=== PATIENT | male | born 1940 | race Caucasian/White ===

== ENCOUNTER 2021-01-21 11:32 | Emergency (ER) | payer MEDICARE, OTHER ==
[2021-01-21 13:47] LABS: BASOPHIL 1.1 % (0-2); EOSINOPHIL 2.7 % (0-7); HGB 14.4 g/dl (13.2-18.0); LYMPHOCYTE 19.9 % (15-48); MCH 30.2 pg (25.0-31.0); MCHC 34.3 g/dL (32.0-36.0); MCV 88.1 fL (78.0-100.0); MONOCYTE 8.2 % (0-12); MPV 8.9 fL (6.0-9.5); NEUTROPHIL 67.6 % (41-80); NRBC 0; PLT 246 K/uL (150-400); RBC 4.77 M/uL (4.70-6.00); RDW 12.9 % (11.5-14.0); WBC 6.6 K/uL (4.0-10.5)
[2021-01-21 14:41] LABS: ALBUMIN 4.3 g/dL (3.4-5.0); BILIRUBIN - TOTAL 0.8 mg/dL (0.2-1.0); CREATININE 0.88 mg/dL (0.67-1.17); GLOBULIN (CALCULATION) 3.4 g/dL; POTASSIUM 4.1 mmol/L (3.5-5.1); TOTAL PROTEIN 7.7 g/dL (6.4-8.2)
== END 2021-01-21 15:32 | disposition home or self-care (01) ==
LOC: FER 11:32
PROVIDERS: Nurse Practitioner Family
DX: R19.7 Diarrhea, unspecified (principal); R10.9 Unspecified abdominal pain
CPT/HCPCS: 36415; 80053; 85025